=== PATIENT | female | born 1950 | race Caucasian/White ===

== ENCOUNTER 2019-03-05 13:50 | Emergency (ER) | payer MEDICARE, OTHER ==
[2019-03-05 13:59] VITALS: BP 182/99
--- NOTE | 2019-03-05 14:36 | ED Physician Documentation ---
PD HPI URI - Stated complaint Stated Complaint: SINUS PRESSURE/EAR PX - Chief complaint Chief Complaint: Heent - History obtained from History obtained from: Patient, Family - History of Present Illness Timing - onset: How many days ago (5) Timing duration: Days (5) Timing details: Gradual onset Pain level max: 5 Pain level now: 4 Associated symptoms: Fever (Subjective), Ear pain, Nasal congestion, Rhinorrhea, Sinus pain, Dry cough Contributing factors: Sick contact Improves by: Medication (sudafed) Worsened by: Other (leaning forward) Similar symptoms before: Diagnosis (She states that she gets sinus infections every year) Recently seen: Not recently seen Review of Systems GI: denies: Vomiting Skin: denies: Rash Musculoskeletal: denies: Neck pain, Back pain PD PAST MEDICAL HISTORY - Past Medical History Past Medical History: Yes Cardiovascular: Hypertension - Past Surgical History Past Surgical History: No - Present Medications Home Medications: Ambulatory Orders Medication Instructions Recorded Confirmed Amox/Clav 875/125 [Augmentin] 1 tab PO Q12H #20 tablet 03/05/19 Cetirizine HCl/Pseudoephedrine 1 tab PO BID PRN #30 tab.er.12h 03/05/19 [Zyrtec-D Tablet] Fluticasone [Flonase] 1 sprays OSVALDO BID PRN #1 bottle 03/05/19 Lamotrigine [Lamotrigine ER] 150 mg PO DAILY 03/05/19 03/05/19 Metoprolol Tartrate mg ORAL DAILY 03/05/19 amLODIPine [Norvasc] 5 mg PO ONCE 03/05/19 03/05/19 - Allergies Allergies/Adverse Reactions: Allergies Allergy/AdvReac Type Severity Reaction Status Date / Time Sulfa (Sulfonamide Allergy Emesis Verified 03/05/19 14:28 Antibiotics) sulfamethoxazole Allergy Emesis Verified 03/05/19 14:28 [From ] trimethoprim [From ] Allergy Emesis Verified 03/05/19 14:28 - Social History Does the pt smoke?: No Smoking Status: Never smoker Does the pt drink ETOH?: No Does the pt have substance abuse?: No - Immunizations Immunizations are current?: Yes PD ED PE NORMAL - Vitals Vital signs reviewed: Yes - General General: Alert and oriented X 3, No acute distress, Well developed/nourished - HEENT HEENT: PERRL, Ears normal, Moist mucous membranes, Pharynx benign, Other (Tender to palpation over the frontal and maxillary sinuses.) - Neck Neck: Supple, no meningeal sign, No adenopathy - Cardiac Cardiac: RRR, No murmur, Strong equal pulses - Respiratory Respiratory: No respiratory distress, Clear bilaterally - Derm Derm: Warm and dry - Neuro Neuro: Alert and oriented X 3 - Psych Psych: Normal mood, Normal affect Results - Vitals Vitals: Vital Signs - 24 hr 03/05/19 13:56 Temperature 36.8 C Heart Rate 114 H Respiratory 18 Rate Blood Pressure 182/99 H O2 Saturation 98 Oxygen O2 Source Room air PD MEDICAL DECISION MAKING - ED course Complexity details: considered differential, d/w patient, d/w family ED course: Patient is visiting from [place]. She appears to have sinusitis. Will place on intranasal steroids and decongestants. If she fails to improve, will start the antibiotics. She is well-appearing, nontoxic. Patient counseled regarding signs and symptoms for which I believe and urgent re-evaluation would be necessary. Patient with good understanding of and agreement to plan and is comfortable going home at this time This document was made in part using voice recognition software. While efforts are made to proofread this document, sound alike and grammatical errors may occur. Mild swelling of the nasal turbinates on intranasal exam Departure - Departure Disposition: 01 Home, Self Care Clinical Impression: Sinusitis Qualifiers: Sinusitis location: pansinusitis Chronicity: acute Recurrence: non-recurrent Qualified Code(s): J01.40 - Acute pansinusitis, unspecified Condition: Good Instructions: ED Sinusitis Abx Tx Follow-Up: Debbie Kasper MD [Primary Care Provider] - Within 1 week Prescriptions: Amox/Clav 875/125 [Augmentin] 1 tab PO Q12H #20 tablet Cetirizine HCl/Pseudoephedrine [Zyrtec-D Tablet] 1 tab PO BID PRN #30 tab.er.12h PRN Reason: nasal congestion Fluticasone [Flonase] 1 sprays OSVALDO BID PRN #1 bottle PRN Reason: Nasal Congestion Comments: Return if you worsen. Follow-up with your doctor if you are not better in 1 week. If you are still having symptoms in 3 to 5 days, you can start the antibiotic. You can also try saline nasal rinses at home. Discharge Date/Time: 03/05/19 14:51
== END 2019-03-05 14:51 | disposition home or self-care (01) ==
LOC: ED 13:50
DX: J01.40 Acute pansinusitis, unspecified (principal); I10 Essential (primary) hypertension
CPT/HCPCS: 99283; 99284